=== PATIENT | male | born 1980 | race African-American/Black ===

== ENCOUNTER 2016-09-15 21:29 | Emergency (ER) | payer OTHER ==
[~2016-09-15 21:29] MED LIST: FLEXERIL10 MG PO; LORTAB 5/500 TA1 TA1 PO; NO MEDICATIONS; VOLTAREN75 MG PO
== END 2016-09-15 21:40 | disposition home or self-care (01) ==
LOC: SED 21:29
DX: S01.81XA Laceration without foreign body of other part of head, initial encounter (principal); F17.210 Nicotine dependence, cigarettes, uncomplicated; W22.8XXA Striking against or struck by other objects, initial encounter; Y93.67 Activity, basketball; Y92.22 Religious institution as the place of occurrence of the external cause
CPT/HCPCS: 12011; 99283